=== PATIENT | female | born 1945 | race Caucasian/White ===

== ENCOUNTER → 2018-10-08 | Outpatient (CLI) | payer MEDICARE ==
[2018-10-08 13:21] LABS: BASOPHILS % (AUTO) 0.6 % (0.0-5.0); EOSINOPHILS % (AUTO) 0.6 % (0.0-8.0); HEMATOCRIT 42.5 % (36-48); MEAN CORPUSCULAR HEMOGLOBIN 30.8 pg (27.0-33.0); MEAN CORPUSCULAR VOLUME 93.2 fL (79-99); MONOCYTES % (AUTO) 6.3 % (3.0-13.0); NEUTROPHILS % (AUTO) 62.5 % (40.0-77.0); PLATELET COUNT (AUTO) 204 K/uL (130-400); RED BLOOD CELL COUNT(AUTO) 4.56 MIL/uL (4.00-5.50); RED CELL DISTRIBUTION WIDTH 13.9 % (11.0-15.5); WHITE BLOOD COUNT (AUTO) 11.3 K/uL (4.8-10.8)
[2018-10-08 13:30] LABS: INR 0.96 (0.85-1.15); PROTHROMBIN TIME 10.1 SEC (9.6-11.6)
[2018-10-08 13:35] LABS: ALBUMIN 4.4 g/dL (3.5-5.0); BILIRUBIN,TOTAL 0.5 mg/dL (0.2-1.0); CREATININE 1.1 mg/dL (0.5-1.5); POTASSIUM 4.4 mmol/L (3.5-5.1); TOTAL PROTEIN, SERUM 8.7 g/dL (6.0-8.3)
[2018-10-12 09:12] LABS: E. HISTOLYTICA (AMEBIASIS) AB Negative (Negative)
== END | disposition home or self-care (01) ==
LOC: LAB 12:18
PROVIDERS: ATTEND Internal Medicine
DX: R94.5 Abnormal results of liver function studies (principal); R93.2 Abnormal findings on diagnostic imaging of liver and biliary tract; R10.10 Upper abdominal pain, unspecified; R19.7 Diarrhea, unspecified; I10 Essential (primary) hypertension; E03.9 Hypothyroidism, unspecified; R79.89 Other specified abnormal findings of blood chemistry; Z85.840 Personal history of malignant neoplasm of eye; Z90.710 Acquired absence of both cervix and uterus; Z90.49 Acquired absence of other specified parts of digestive tract; Z79.899 Other long term (current) drug therapy
CPT/HCPCS: 36415; 80053; 82105; 82150; 82172; 82247; 82378; 82656; 82977; 83010; 83690; 83883; 84460; 85025; 85610; 86038; 86215; 86235; 86255; 86316; 86376; 86682; 86753; 87507

== ENCOUNTER 2018-10-20 09:48 | Day surgery (SDC) | payer MEDICARE ==
[~2018-10-20] VITALS: Ht 157.5 cm; Wt 88.5 kg
[2018-10-20] VITALS (7 sets, daily range): BP systolic 77–122; BP diastolic 51–72
[~2018-10-20 09:48] MED LIST: SODIUM CHLORIDE 0.9% 1000ML 1,000 ML IV ONE
[2018-10-20] MEDS ORDERED: INDOMETHACIN 50 MG SUPP.RECT RC SCH (11:15)
[2018-10-20] MEDS ORDERED: MELO-108 PO (11:16)
[2018-10-20] MEDS ORDERED: LEVO88TA7 PO (11:16)
[2018-10-20] MEDS ORDERED: AMLODIPINE (11:16)
[2018-10-20] MEDS ORDERED: VALSARTAN (11:16)
[2018-10-20] MEDS ORDERED: OMEP-50 PO (11:16)
[2018-10-20] MEDS ORDERED: TYLENOL PM PO (11:16)
[2018-10-20] MEDS ORDERED: LINA72CA PO (11:16)
[2018-10-20] MEDS ORDERED: GABA-531 PO (11:16)
[2018-10-20] MEDS ORDERED: ESCI10TA54 PO (11:16)
[2018-10-20] MEDS ORDERED: IOHEXOL-350 50ML VIAL IV ONE (12:13)
[2018-10-20] MEDS ORDERED: LIDOCAINE HCL 1% 20 ML VIAL ONE (12:57)
[2018-10-20] MEDS ORDERED: PROPOFOL 10 MG/ML 20ML VIAL IV ONE (12:57)
== END 2018-10-20 13:50 | disposition home or self-care (01) ==
LOC: DAH 09:48 → ENDO 09:48
PROVIDERS: ATTEND Internal Medicine
DX: K86.89 Other specified diseases of pancreas (principal); K83.8 Other specified diseases of biliary tract; K31.89 Other diseases of stomach and duodenum; I10 Essential (primary) hypertension; E03.9 Hypothyroidism, unspecified; F41.9 Anxiety disorder, unspecified; E66.01 Morbid (severe) obesity due to excess calories; Z68.35 Body mass index [BMI] 35.0-35.9, adult; Z90.49 Acquired absence of other specified parts of digestive tract; Z90.710 Acquired absence of both cervix and uterus; Z79.899 Other long term (current) drug therapy; Z98.890 Other specified postprocedural states; Z72.89 Other problems related to lifestyle; Z87.891 Personal history of nicotine dependence
CPT/HCPCS: 43237; A4606; J2704; J7030; Q9967

== ENCOUNTER → 2018-12-16 | Outpatient (CLI) | payer MEDICARE ==
[~2018-12-16] MED LIST changes: +AMLODIPINE; +ESCI10TA54 PO; +GABA-531 PO; +LEVO88TA7 PO; +LINA72CA PO; +MELO-108 PO; +OMEP-50 PO; -SODIUM CHLORIDE 0.9% 1000ML 1,000 ML IV ONE; +TYLENOL PM PO; +VALSARTAN
[2018-12-16 14:31] LABS: ALBUMIN 3.9 g/dL (3.5-5.0); BILIRUBIN,DIRECT 0.1 mg/dL (0.0-0.3); BILIRUBIN,TOTAL 0.4 mg/dL (0.2-1.0); TOTAL PROTEIN, SERUM 7.6 g/dL (6.0-8.3)
== END | disposition home or self-care (01) ==
LOC: LAB 13:14
PROVIDERS: ATTEND Internal Medicine
DX: R93.2 Abnormal findings on diagnostic imaging of liver and biliary tract (principal); R93.3 Abnormal findings on diagnostic imaging of other parts of digestive tract; R10.10 Upper abdominal pain, unspecified; R94.5 Abnormal results of liver function studies; K77 Liver disorders in diseases classified elsewhere
CPT/HCPCS: 36415; 80076